=== PATIENT | male | born 1985 | race Caucasian/White ===

== ENCOUNTER 2025-01-17 16:20 | Emergency (ER) | payer OTHER, BC, SELFPAY ==
[2025-01-17 16:23] VITALS: BP 128/86; PULSE 75; RESP 16; TEMP 37; O2SAT 99; BMI 21.8
--- NOTE | 2025-01-17 16:40 | ED_ITS ---
HPI - General Adult General Date Seen: 01/17/25 Chief complaint: Animal Bite Stated complaint: Bonifacio islas bite Time Seen by Provider: 01/17/25 16:21 History of Present Illness HPI narrative: Patient is a 39-year-old here for evaluation after a commode Dragon by. He works at the [place] [employer] was handling a small, 3-year-old, to Dragon. The animal got kind spooked and ran up and bit him on the back of the neck. Cleaned it there, he set of blood quite a bit but the wounds themselves are small, he has that Dragon at this size has very small teeth, but the staff at this who recommended that he be treated prophylactically with antibiotics. He is up-to-date on vaccinations. He does not have any allergies. Related Data Home Medications ?Medication ?Instructions ?Recorded ?Confirmed No Known Home Medications 01/17/2501/02 Allergies Allergy/AdvReac Type Severity Reaction Status Date / Time No Known Drug Allergies Allergy Verified 07/15/22 08:14 PFSH PFSH Surgical History Status post laparoscopic appendectomy Social History Smoking Status: Never smoker How often do you have a drink containing alcohol: monthly or less AUDIT-C Alcohol total score: 1 Non-prescribed substance use: denies use Exam Narrative: Exam Narrative: Vital signs reviewed In general, alert, well-appearing young man. Skin: He has several small wall wounds on the back of his neck consistent with bites from upper and lower jaw. One of these is bleeding a little bit, the oth ers are fairly superficial appearing. Const: Vital Signs, click to edit/add: Vital Signs - 24 hr 01/17/25 16:23 Temperature 98.6 F Pulse Rate [Pulse Oximeter] 75 Respiratory Rate 16 Blood Pressure [Ri ght Upper Arm] 128/86 Pulse Oximetry 99 Oxygen Delivery Me thod Room Air Course Course ED Course: Wounds cleaned, dressed with a bandage and antibiotic ointment. Will prescribe Augmentin, prescribed from [facility]. Keep an eye on the wound, if there is any concern for developing infection should be seen again. Vital Signs Vital signs: Initial Vital Signs Temperature 98.6 F 01/17/25 16:23 Temperature Source Temporal Artery Scan 01/17/25 16:23 Pulse Rate 75 01/17/25 16:23 Respiratory Rate 16 01/17/25 16:23 Blood Pressure 128/86 01/17/25 16:23 Blood Pressure Mean 100 01/17/25 16:23 Blood Pressure Position Sitting 01/17/25 16:23 Pulse Oximetry 99 01/17/25 16:23 Oxygen Delivery Method Room Air 01/17/25 16:23 Vital Signs Temperature 98.6 F 01/17/25 16:23 Pulse Rate 75 01/17/25 16:23 Respiratory Rate 16 01/17/25 16:23 Blood Pressure 128/86 01/17/25 16:23 Pulse Oximetry 99 01/17/25 16:23 Oxygen Delivery Method Room Air 01/17/25 16:23 Temperature 98.6 F 01/17/25 16:23 Pulse Rate 75 01/17/25 16:23 Respiratory Rate 16 01/17/25 16:23 Blood Pressure 128/86 01/17/25 16:23 Pulse Oximetry 99 01/17/25 16:23 Oxygen Delivery Method Room Air 01/17/25 16:23 Discharge Plan Discharge Clinical Impression: Lizard bite Patient Disposition: Home, Self-Care Condition: Stable Additional Instructions: Augmentin as prescribed. We typically a 5 day course 1 when we are prophylaxing against infection. If after 5 days there is no sign of infection you can discontinue the antibiotic. If you have any concerns about developing infection, I would continue the antibiotic and be seen for recheck. Prescriptions: No Action No Known Home Medications Follow Up/Referrals: Enrike Shearer MD [Primary Care Provider, Family Practice] [facility] Info Inst[facility]
== END 2025-01-17 16:47 | disposition home or self-care (01) ==
LOC: ED 16:43
PROVIDERS: Emergency Provider Emergency Medicine; PCP Family Medicine
DX: S11.95XA Open bite of unspecified part of neck, initial encounter (principal); W59.01XA Bitten by nonvenomous lizards, initial encounter
CPT/HCPCS: 99282; 99284

== ENCOUNTER 2025-02-03 20:43 | Emergency (ER) | payer BC, SELFPAY ==
[2025-02-03 20:50] VITALS: BP 122/75; PULSE 54; RESP 16; TEMP 37; O2SAT 100; BMI 21.8
--- NOTE | 2025-02-03 21:02 | ED_ITS ---
HPI - General Adult General Chief complaint: Extremity Pain/Injury, Lower Stated complaint: hurt right calf/jacobs Time Seen by Provider: 02/03/25 20:54 Source: patient Mode of arrival: ambulatory Limitations: no limitations History of Present Illness HPI narrative: 39-year-old male presenting today with leg pain. Patient states he was hit on the side of the right calf by a line drive baseball. This occurred a few hours ago. He complains of pain in the area. He feels like it is difficult to move his ankle. He has no trouble bearing weight on that leg and has been walking around for the last 2.5 hours since it happened. Denies other injury. Related Data Home Medications ?Medication ?Instructions ?Recorded ?Confirmed No Known Home Medications 01/17/2507/26 Allergies Allergy/AdvReac Type Severity Reaction Status Date / Time No Known Drug Allergies Allergy Verified 02/03/25 20:52 Review of Systems Status of ROS: Reports: 6 or more systems reviewed and unremarkable except as noted in History and below PFSH PFS Surgical History Status post laparoscopic appendectomy ?Z90.49 - Acquired absence of other specified parts of digestive tract (ICD- 10) Social History Smoking Status: Never smoker How often do you have a drink containing alcohol: monthly or less AUDIT-C Alcohol total score: 1 Non-prescribed substance use: denies use Exam Narrative: Exam Narrative: Well-nourished well-developed patient in no acute distress. Alert and oriented. Answers questions appropriately. Mood and affect are appropriate. Thoughts are goal oriented and rational. No tangential or magical thinking noted. Patient speaks in full sentences without needing to catch his breath. HEENT: Normocephalic atraumatic. Pupils are equally round reactive to light. Extraocular muscles are intact. Conjunctivae are moist without any icterus noted. Moist mucous membranes. Extremities: Patient has round swollen cuauhtemoc from the baseball on the lateral calf. He has swelling anteriorly as well. Tenderness laterally. Does have full range of motion at the ankle and toes. He has normal DP and PT pulses. Normal capillary refill. He has tenderness to palpation at the site where the ball hit the leg but minimal or no tenderness elsewhere. Bears weight without difficulty. Const: Vital Signs, click to edit/add: Vital Signs - 24 hr 02/03/25 20:50 Temperature 98.6 F Pulse Rate [Pulse Oximeter] 54 L Respiratory Rate 16 Blood Pressure [Ri ght Upper Arm] 122/75 Pulse Oximetry 100 Oxygen Delivery Me thod Room Air Course Vital Signs Vital signs: Initial Vital Signs Temperature 98.6 F 02/03/25 20:50 Temperature Source Temporal Artery Scan 02/03/25 20:50 Pulse Rate 54 L 02/03/25 20:50 Respiratory Rate 16 02/03/25 20:50 Blood Pressure 122/75 02/03/25 20:50 Blood Pressure Mean 90 02/03/25 20:50 Blood Pressure Position Sitting 02/03/25 20:50 Pulse Oximetry 100 02/03/25 20:50 Oxygen Delivery Method Room Air 02/03/25 20:50 Vital Signs Temperature 98.6 F 02/03/25 20:50 Pulse Rate 54 L 02/03/25 20:50 Respiratory Rate 16 02/03/25 20:50 Blood Pressure 122/75 02/03/25 20:50 Pulse Oximetry 100 02/03/25 20:50 Oxygen Delivery Method Room Air 02/03/25 20:50 Temperature 98.6 F 02/03/25 20:50 Pulse Rate 54 L 02/03/25 20:50 Respiratory Rate 16 02/03/25 20:50 Blood Pressure 122/75 02/03/25 20:50 Pulse Oximetry 100 02/03/25 20:50 Oxygen Delivery Method Room Air 02/03/25 20:50 Medical Decision Making MDM Narrative Medical decision making narrative: 39-year-old male with injury to the leg. We discussed signs and symptoms of compartment syndrome and reasons to return. In the meantime we discussed icing and elevation. Discharge Plan Discharge Clinical Impression: Leg injury Patient Disposition: Home, Self-Care Condition: Stable Additional Instructions: Recommend icing the area for 20 minutes at a time every 1-2 hours. Do not apply ice directly to the skin and do not ice for more than 20 minutes in 1 sitting. Do recommend taking ibuprofen or Tylenol as needed/as directed for pain. Elevate the leg as much as possible for the next 24 hours. Return to the emergency room immediately if you develop worsening pain, pain radiating down into the foot, foot feels cold or turns pale. Prescriptions: No Action No Known Home Medications Follow Up/Referrals: Enrike Shearer MD [Primary Care Provider, Family Practice] Stand Alone Forms: [employer] Info Instructions
== END 2025-02-03 21:27 | disposition home or self-care (01) ==
LOC: ED 21:15
PROVIDERS: Emergency Provider Family Medicine; PCP Family Medicine
DX: S80.11XA Contusion of right lower leg, initial encounter (principal); W21.03XA Struck by baseball, initial encounter
CPT/HCPCS: 99283